=== PATIENT | female | born 1935 | race Two or more races ===

== ENCOUNTER 2017-03-23 10:31 | Emergency (ER) | payer OTHER ==
[2017-03-23 10:41] VITALS: BMI 27.4
--- NOTE | 2017-03-23 11:36 | EKG ---
Test Reason : Blood Pressure : / mmHG Vent. Rate : 076 BPM Atrial Rate : 076 BPM P-R Int : 140 ms QRS Dur : 072 ms QT Int : 392 ms P-R-T Axes : 065 048 076 degrees QTc Int : 441 ms NORMAL SINUS RHYTHM WITH SINUS ARRHYTHMIA NONSPECIFIC T WAVE ABNORMALITY ABNORMAL ECG WHEN COMPARED WITH ECG OF 03-MAY-2012 00:50, NO SIGNIFICANT CHANGE WAS FOUND Confirmed by MD CHARISSE, STIVEN ([id number]) on 03/23/2017 11:35:55 AM Referred By: Confirmed By:STIVEN MCQUEEN MD
[2017-03-23 11:37] LABS: BASO % 1.3 % (0-2.0); EOS % 3.6 % (0-4.5); HEMATOCRIT 40.3 % (32.4-45.2); HEMOGLOBIN 13.1 GM/dL (10.7-15.3); LYMPH % 27.1 % (8-40); MCH 29.3 pg (25.7-33.7); MCHC 32.5 g/dl (32.0-36.0); MEAN CELL VOLUME 90.3 fl (80-96); MEAN PLT VOLUME 8.4 fl (7.5-11.1); MONO % 9.3 % (3.8-10.2); NEUT % 58.7 % (42.8-82.8); PLATELET COUNT 296 K/MM3 (134-434); RBC 4.46 M/mm3 (3.60-5.2); RDW 13.9 % (11.6-15.6); WHITE BLOOD COUNT 9.3 K/mm3 (4.0-10.0)
[2017-03-23 11:38] LABS: URINE APPEARANCE CLEAR; URINE BILIRUBIN NEGATIVE (NEGATIVE); URINE BLOOD NEGATIVE (NEGATIVE); URINE COLOR YELLOW; URINE GLUCOSE (UA) NEGATIVE (NEGATIVE); URINE KETONE NEGATIVE (NEGATIVE); URINE NITRITE NEGATIVE (NEGATIVE); URINE PROTEIN NEGATIVE (NEGATIVE); URINE UROBILINOGEN NEGATIVE mg/dL (0.2-1.0)
--- NOTE | 2017-03-23 11:50 | PDOC ---
History of Present Illness - General Chief Complaint: Respiratory Stated Complaint: BODYACHE, COUGH Time Seen by Provider: 03/23/17 11:05 - History of Present Illness Initial Comments: 03/23/17 11:47 Patient is an 81 y.o. female with a PMH IDDM, possible GA or CHF, HLD who presents to our facility today c/o 1 week h/o chest pain (substernal, non-radiating, triggered by cough, onset with GI symptoms (nausea/vomiting) last week). Patient states the GI symptoms resolved with OTC medications but the chest pain persisted prompting her visit to the ED. Patient states she follows with a supply chain intern for her "heart failure" and is expressing concern that she has the influenza virus following viewing a news report that talked about the high incidence of the virus this year. Patient denies any associated shortness of breath, fevers, chills, diarrhea/ constipation. NKDA PMD: Dr. Portia Pathak Past History - Past Medical History Allergies/Adverse Reactions: Allergies Allergy/AdvReac Type Severity Reaction Status Date / Time No Known Drug Allergies Allergy Verified 03/23/17 10:41 Home Medications: Ambulatory Orders Amlodipine Besylate [Norvasc -] 5 mg PO DAILY 05/03/12 Atorvastatin Calcium [Lipitor] 20 mg PO DAILY 05/03/12 Enalapril Maleate [Vasotec -] 10 mg PO DAILY 05/03/12 Furosemide [Lasix -] 20 mg PO DAILY 05/03/12 Insulin NPH [Novolin N Vial -] 16 units SQ AM 05/03/12 Aspirin [Aspirin EC] 81 mg PO DAILY 03/23/17 Bimatoprost [Lumigan] 1 drop OU DAILY 03/23/17 Brimonidine Tartrate [Alphagan 0.2% -] 1 drop OU TID 03/23/17 Clopidogrel Bisulfate [Plavix -] 75 mg PO DAILY 03/23/17 COPD: No Diabetes: Yes HTN: Yes - Suicide/Smoking/Psychosocial Hx Smoking Status: Yes Smoking History: Former smoker Have you smoked in the past 12 months: No Number of Cigarettes Smoked Daily: 6 If you are a former smoker, when did you quit?: 2 years Information on smoking cessation initiated: No Hx Alcohol Use: Yes Drug/Substance Use Hx: No Substance Use Type: Alcohol Hx Substance Use Treatment: No Review of Systems - Review of Systems Constitutional: No: Chills, Fever Respiratory: Yes: Shortness of Breath Cardiac (ROS): Yes: Chest Pain. No: Lightheadedness, Palpitations, Syncope, Chest Tightness ABD/GI: No: Constipated, Diarrhea, Nausea, Vomiting : No: Burning, Dysuria *Physical Exam - Vital Signs Last Vital Signs Temp Pulse Resp BP Pulse Ox 98.7 F 78 18 143/57 100 03/23/17 10:37 03/23/17 10:37 03/23/17 10:37 03/23/17 10:37 03/23/17 10:37 - Physical Exam General Appearance: Yes: Nourished, Appropriately Dressed HEENT: positive: EOMI, KIM Neck: positive: Trachea midline, Supple Respiratory/Chest: positive: Lungs Clear Cardiovascular: positive: S1, S2 Musculoskeletal: negative: CVA Tenderness (R), CVA Tenderness (L) Extremity: positive: Normal Capillary Refill, Normal Inspection Integumentary: positive: Normal Color, Dry, Warm Neurologic: positive: cat operator II-XII NML intact, Fully Oriented, Alert ED Treatment Course - LABORATORY CBC & Chemistry Diagram: 03/23/17 11:40 03/23/17 11:40 - ADDITIONAL ORDERS Additional order review: 03/23/17 11:40 RBC 4.46 MCV 90.3 MCHC 32.5 RDW 13.9 MPV 8.4 Neutrophils % 58.7 D Lymphocytes % 27.1 D Monocytes % 9.3 Eosinophils % 3.6 D Basophils % 1.3 - RADIOLOGY Radiology Studies Ordered: Category Date Time Status CHEST PA & LAT [RAD] Stat Radiology 03/23/17 11:12 Ordered Medical Decision Making - Medical Decision Making 03/23/17 12:46 Patient is an 81 y.o. female who presents with a c/o substernal non-radiating chest that is triggered by cough. As patient has CHF and CAD, will obtain troponin and EKG to r/o ACS - low clinical suspicion as chest pain triggered by cough. CXR, CBC/CMP, Influenza swab pending. 03/23/17 13:07 Mg 1.6 - will replete IV 03/24/17 02:55 Troponin (-). EKG shows no deviations, normal intervals, no ST elevations. Heart Score 3. Influenza negative. CXR shows no infiltrate/consolidation. Patient's chest pain likely 2/2 to resolving GI virus or possibly bronchitis. Patient to be discharged home with instructions for supportive care, return precautions and follow-up with PCP. *DC/Admit/Observation/Transfer Diagnosis at time of Disposition: Cough, Bronchitis - Discharge Dispostion Disposition: HOME Condition at time of disposition: Stable - Referrals Referrals: Portia Pathak [Primary Care Provider] - - Patient Instructions Printed Discharge Instructions: DI for Acute Bronchitis Additional Instructions: Follow-up with your primary care doctor within 1-2 days. Follow-up with your supply chain intern within 1 week. Use a humidifier at home as dry weather can make your cough worse. Continue to use Mucinex if it helps with your cough. Return to the emergency department if you have any new, worsening or concerning symptoms. - Post Discharge Activity
[2017-03-23 11:58] LABS: ALBUMIN 3.4 g/dl (3.4-5.0); ANION GAP 7 (8-16); BILIRUBIN,TOTAL 0.3 mg/dL (0.2-1.0); BLOOD UREA NITROGEN 12 mg/dL (7-18); CALCIUM 8.7 mg/dL (8.5-10.1); CHLORIDE 105 mmol/L (98-107); CO2 29 mmol/L (21-32); CREATININE 0.7 mg/dL (0.55-1.02); GLUCOSE,RANDOM 225 mg/dL (74-106); MAGNESIUM 1.6 mg/dL (1.8-2.4); SGOT/AST 43 U/L (15-37); SGPT/ALT 42 U/L (12-78); SODIUM 141 mmol/L (136-145); TOT PROT 7.1 g/dl (6.4-8.2)
[2017-03-23 12:01] LABS: ALK PHOS 103 U/L (45-117)
[2017-03-23 12:37] LABS: URINE LEUK ESTERASE 2+ (NEGATIVE)
--- NOTE | 2017-03-23 12:43 | PDOC ---
Attending Attestation - Resident Resident Name: Mer Santos - ED Attending Attestation I have performed the following: I have examined & evaluated the patient, The case was reviewed & discussed with the resident, I agree w/resident's findings & plan, Exceptions are as noted - HPI HPI: 03/23/17 14:43 The patient is a 81 year old female, with a significant past medical history of IDDM, CAD, CHF, HLD , who presents to the emergency department with substernal chest pain for the 3 days and non productive cough for 1 week. She describes her chest pain as ranging from mild to moderate, without radiation or modifying factors. Reports CP occurs only when she coughs, and is absent otherwise. She states that she is following up with a lacquer pin press operator twice a year. She reports that initially when her chest pain started, she was experiencing some N/V that have since resolved with OTC meds. She presents to the ED today because she was watching the news and was concerned she may have the flu. The patient denies headache and dizziness. Denies fever, chills, nausea, vomit, diarrhea and constipation. Allergies: None Past surgical history: None reported Social history: Alcohol use. No tobacco or drug use reported PMD: Dr. Portia Pathak - Physicial Exam PE: 03/23/17 14:44 GENERAL: Awake, alert, and fully oriented, in no acute distress HEAD: No signs of trauma, normocephalic, atraumatic EYES: PERRLA, EOMI, sclera anicteric, conjunctiva clear ENT: Auricles normal inspection, hearing grossly normal, nares patent, oropharynx clear without exudates. Moist mucosa NECK: Normal ROM, supple, no lymphadenopathy, JVD, or masses LUNGS: No distress, speaks full sentences, clear to auscultation bilaterally HEART: Regular rate and rhythm, normal S1 and S2, no murmurs, rubs or gallops, peripheral pulses normal and equal bilaterally. ttp to sternum ABDOMEN: Soft, nontender, normoactive bowel sounds. No guarding, no rebound. No masses EXTREMITIES : Normal inspection, Normal range of motion, no edema. No clubbing or cyanosis. NEUROLOGICAL: Cranial nerves II through XII grossly intact. Normal speech, normal gait, no focal sensorimotor deficits SKIN: Warm, Dry, normal turgor, no rashes or lesions noted. - Medical Decision Making 03/23/17 14:41 81-year-old female with multiple medical problems including CHF and CAD presents the emergency department with 1 week of cough as well as chest pain when she has cough. Vitals are unremarkable. Exam is unremarkable. EKG is nonischemic. Patient's presentation most consistent with bronchitis after a viral infection. She has taken Mucinex at home with some relief but was concerned that she may have the flu which prompted her to come into the emergency department today we'll also check a flu swab given her age and comorbidities. Given her cardiac history, will obtain a troponin although unlikely ACS as patient only has chest pain when she coughs. Chest pain is also reproducible on exam. Will obtain CXR to r/o infiltrate or trauma 03/23/17 15:52 Labs including troponin unremarkable. Mg slightly low, repleted with IV Mg Sulfate. Chest x-ray is clear. Flu swab is negative. Likely viral syndrome. All results discussed with patient who feels relieved and agrees to follow-up with her primary doctor within 1-2 days. She feels well and is clinically stable, requests DC I discussed the physical exam findings, ancillary test results and final diagnoses with the patient. I answered all of the patient's questions. The patient was satisfied with the care received and felt comfortable with the discharge plan and treatment plan. The patient will call their primary care physician within 24 hours to arrange follow-up and will return to the Emergency Department with any new, persistent or worsening symptoms. Discharge Disposition - Diagnosis Cough, Bronchitis - Discharge Dispostion Disposition: HOME Condition at time of disposition: Stable Last Admission D/C Date: 05/04/12 Admit: No - Referrals Referrals: Portia Pathak [Primary Care Provider] - - Patient Instructions Printed Discharge Instructions: DI for Acute Bronchitis Additional Instructions: Follow-up with your primary care doctor within 1-2 days. Follow-up with your lacquer pin press operator within 1 week. Use a humidifier at home as dry weather can make your cough worse. Continue to use Mucinex if it helps with your cough. Return to the emergency department if you have any new, worsening or concerning symptoms. - Post Discharge Activity Heart Score/ECG Review - History History: Slightly suspicious - Electrocardiogram EKG: Normal - Age Age: >/= 65 - Risk Factors Risk Factors Heart Score: Yes Hx Hypertension, Yes Hx Diabetes Based on the list above the patient has:: 1-2 risk factors - Troponin Troponin: </= normal limit - Score Heart Score - Total: 3 #1 03/23/17 14:40 Twelve-lead EKG was performed and reviewed by me. Normal sinus rhythm, rate 76. Normal axis and intervals. No ST elevations or T-wave inversions.
[2017-03-23 12:47] LABS: EPI CELLS FEW /HPF (FEW); URINE MUCUS RARE
[2017-03-23] MEDS ORDERED: MAGNESIUM SULF 50% (8.12 MEQ/2 ML-1 GM VIAL) IVPB ONE (12:47)
[2017-03-23] MEDS ORDERED: MAGNESIUM 1GM/D5W - 1 GM/100 ML IVPB IVPB ONE (13:00)
[2017-03-23 15:09] VITALS: BP 119/78; PULSE 67; TEMP 98.5
== END 2017-03-23 15:09 | disposition home or self-care (01) ==
LOC: JER 10:31
PROC: 3E033GC Introduction of Other Therapeutic Substance into Peripheral Vein, Percutaneous Approach (ICD-10-PCS; principal; 2017-03-23)
DX: J20.9 Acute bronchitis, unspecified (principal); I25.10 Atherosclerotic heart disease of native coronary artery without angina pectoris; I50.9 Heart failure, unspecified; I10 Essential (primary) hypertension; E11.9 Type 2 diabetes mellitus without complications; Z79.4 Long term (current) use of insulin; Z87.891 Personal history of nicotine dependence
CPT/HCPCS: 36415; 71046-TC; 80053; 81003; 81015; 82550; 83735; 83880; 84484; 85025; 87804; 93005; 93010; 96374; 99282-25